=== PATIENT | male | born 1960 ===

== ENCOUNTER 2017-08-11 09:59 | Observation (INO) | payer BC ==
[2017-08-11] MEDS ORDERED: Aspirin TAB* 325 MG PO ONE (11:48)
[2017-08-11 12:02] LABS: ABS Basophils 0.1 10^3/ul (0-0.2); ABS Eosinophils 0.1 10^3/ul (0-0.6); ABS Lymphocytes 2.2 10^3/ul (1.0-4.8); ABS Monocytes 0.4 10^3/ul (0-0.8); ABS Neutrophils 6.6 10^3/ul (1.5-7.7); ABS Nucleated RBC 0 10^3/ul; Eosinophil % 0.7 % (0-6); Hematocrit 48 % (42-52); Hemoglobin 16.4 g/dl (14.0-18.0); Lymphocyte % 23.5 % (25-47); Mean Corpuscular HGB Conc 35 g/dl (31-36); Mean Corpuscular Hemoglobin 32 pg (27-31); Mean Corpuscular Volume 92 fL (80-94); Mean Platelet Volume 8 um3 (7.4-10.4); Nucleated Red Blood Cells % 0.2; Platelet Count 227 10^3/ul (150-450); Red Blood Count 5.19 10^6/ul (4.0-5.4); Red Cell Distribution Width 13 % (10.5-15); White Blood Count 9.5 10^3/ul (3.5-10.8)
--- NOTE | 2017-08-11 12:14 | RAD ---
INDICATION: Chest pain COMPARISON: July 08, 2010 TECHNIQUE: An AP portable view obtained at 1155 hours is submitted. The examination is apical lordotic in positioning FINDINGS: Bones/Soft Tissues: There are no acute bony findings. Cardiomediastinal: The cardiomediastinal silhouette is normal. Lungs: There are no infiltrates. Pleura: There are no pleural effusions. Other: None IMPRESSION: NO ACTIVE DISEASE
[2017-08-11 12:17] LABS: EGFR Non-African American 89.3 (>60)
[2017-08-11] MEDS ORDERED: Dextrose 50% Syringe 50 ML* 25 GM/50 ML SYRINGE IV PUSH PRN (14:24)
[2017-08-11] MEDS ORDERED: NS 0.9% 1000 ML* 1,000 ML IV SCH (14:30)
[2017-08-11] MEDS: Insulin LISPRO* 1 UNITS UNIT SUBCUT SCH ×2 (17:29→22:16)
--- NOTE | 2017-08-11 19:58 | HP ---
CC: Dr. Augustine Garnett * ADMISSION HISTORY AND PHYSICAL: DATE OF ADMISSION: 08/11/17 PRIMARY CARE PROVIDER: Dr. Augustine Garnett. MY ATTENDING WHILE IN THE HOSPITAL: Dr. Murphy Patel * (DICTATED BY SIMRAN BOJORQUEZ) CHIEF COMPLAINT: Chest pain intermittently for 10 days. HISTORY OF PRESENT ILLNESS: Mr. Rice is a 57-year-old male with a past medical history significant for diabetes mellitus, hypertension, hyperlipidemia , non- alcoholic fatty liver disease, who presents with 10 days of tightness in his chest on the left side that appears intermittently without provoking or palliating factors. The patient also had one episode 5 days ago when he was shoveling when he developed severe crushing chest pain over the left side of his chest with associated shortness of breath and feeling of impending doom. This resolved with the cessation of activity, but the patient was perturbed by how little activity it brought on. The patient did not receive medical attention at that time, but continued to have chest tightness intermittently most recently on the morning of 08/11/17. The patient called his primary care provider and came into the hospital. With these episodes, the patient does not have any nausea, vomiting, diuresis, palpitations, or other abnormalities. The patient also had one episode of dizziness when he was attempting to exercise on treadmill after about 5 minutes and this forced him to stop. The patient has no orthopnea, PND, swelling in his legs. The patient has increased urination in the night, but has had increased urination for many years he believes related to his diabetes. The patient also has pain in his shoulder, which he feels similar to the rotator cuff tear that he used to have a severe mainly with abduction and radiates down from his shoulder into his biceps and elbow. Hospitalists service was asked to evaluate for admission to rule out myocardial infarction. PAST MEDICAL HISTORY: 1. Diabetes mellitus type 2. 2. Hypertension. 3. Hyperlipidemia. 4. Non-alcoholic fatty liver disease. 5. Tobacco use disorder. PAST SURGICAL HISTORY: None. MEDICATIONS: 1. Crestor 5 mg p.o. daily. 2. Glipizide 15 mg p.o. daily. 3. Amlodipine 10 mg p.o. daily. 4. Janumet 100/1000, one tab p.o. daily. 5. Losartan/hydrochlorothiazide 100/12.5 one tab p.o. daily. ALLERGIES: No known drug allergies. FAMILY HISTORY: The patient's father, brother, and mother all had heart attacks. The patient's father had his first heart attack in his 30s. The patient's brother had his first heart attack in his 40s. The patient's mother had her heart attack at 83. Both the patient's parents also had CVAs. SOCIAL HISTORY: The patient has a 30 year pack history of smoking, which is ongoing. The patient also chews tobacco. The patient also has a history of intermittent alcohol use, which was more intense when he was younger. The patient denies any illicit drugs. 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 The patient is recently and has 2 children from previous marriage. REVIEW OF SYSTEMS: A 14-point review of systems was conducted and is negative except as stated in the HPI. PHYSICAL EXAMINATION GENERAL: The patient is a 57-year-old male, who appears stated age, and is sitting comfortably in the bed, in no acute distress. VITAL SIGNS: Temperature 98.9, pulse rate 96, respiratory rate 18, oxygen saturation 98% on room air, blood pressure 149/102. HEENT: Head: Normocephalic, atraumatic. Sclerae anicteric. No conjunctival injection. Nasal mucosa moist. Oral mucosa moist. No oropharyngeal erythema, exudates or discharge. NECK: Supple, nontender. No lymphadenopathy. No carotids bruits auscultated. RESPIRATORY: Clear to auscultation bilaterally. No wheezes, rales, or rhonchi. Good air exchange bilaterally. CARDIAC: Regular rate and rhythm. No clicks, murmurs, gallops, or rubs. Pulses 2+ in bilateral dorsalis pedis, posterior tibialis, and radial areas. ABDOMEN: Soft, nontender, nondistended. Bowel sounds present, normoactive, in all 4 quadrants. No hepatosplenomegaly. No abdominal bruits auscultated. GENITOURINARY: No suprapubic tenderness or CVA tenderness. MUSCULOSKELETAL: The patient has limited range of motion in the right upper extremity. With abduction, the patient can abduct only to 90 degrees before being halted by pain. The patient denies any popping or cracking. The patient denies any tenderness in the biceps or in the elbow. No other deformity or abnormality. NEURO: Cranial nerves II through XII intact. No focal deficits. He is alert and oriented x3. PSYCHIATRIC: The patient is pleasant and cooperative. SKIN: Clean, dry, intact. No rash. LABORATORY DATA: White blood cell count is 9.5, red blood cell count 5.9, hemoglobin 15.4, hematocrit 48, MCV 92, MCH 32, MCHC 35, RDW 13, platelet count 227. Sodium 135, potassium 4.0, chloride 100, carbon dioxide 25, anion gap 10, BUN 13, creatinine 0.88, glucose 322, lactic acid 2.2, calcium 9.7, total bilirubin 0.6. AST 17, ALT 20. Alkaline phosphatase 155. Troponin-I 0.00. Total protein 6.7. Albumin 4.2, globulin 2.5. STUDIES DONE WHILE IN THE HOSPITAL: Chest x-ray, read as no active disease. Electrocardiogram shows normal sinus rhythm, early repolarization in V2, V3, and V4, no ST segment abnormalities, left axis deviation, left atrial enlargement, QTC of 422. No other abnormalities. ASSESSMENT AND PLAN: Impression: The patient is a 57-year-old male with past medical history significant for hypertension, hyperlipidemia, diabetes mellitus and non-alcoholic fatty liver disease, who presents with 10 days of chest pain concerning for angina with associated shortness of breath and feelings of impending doom. The patient has negative troponins, negative EKG and will be admitted to the hospital for a cardiac stress test in the morning. 1. Chest pain. The patient's chest pain is severe associated with shortness of breath, feelings of impending doom and is exacerbated by activity. The patient has risk factors including diabetes, hypertension, hyperlipidemia, positive family history, smoking disorder, and has had multiple episodes in 24 hour. This equates to a DEANDRE score of 2, which equates to an 8% risk of 14-day all cause mortality. No recurrent myocardial ischemia or severe recurrent ischemia requiring urgent revascularization. This was explained to the patient and the patient is amenable to being admitted to the hospital for a stress test as opposed to an outpatient stress test. We will repeat troponin x2, the first one was 0.00. 2. Diabetes mellitus type 2. The patient's glucose while admission to the emergency department was over 300. We will hold the patient's oral medications while in the hospital and start him on lispro sliding scale. We will resume medications at discharge. We will order hemoglobin A1c. 3. Hypertension. The patient has had one elevated blood pressure while in the hospital, while in the emergency department. We will continue the patient's blood pressure medications and consider adding a beta-carlos if indicated at discharge. 4. Hyperlipidemia. We will repeat the patient's lipid panel and continue patient's Crestor while in the hospital. 5. DVT prophylaxis. The patient is low risk and will be up ad-mary. 6. FEN. The patient had an elevated lactic acid. We will give the patient's fluids at 75 mL/hr. The patient does not appear dehydrated on exam. We will repeat lactic acid. The patient will have a heart-healthy diet and be n.p.o. after midnight. 7. Code status. The patient will be a full code. His surrogate decision maker is his , Latha Rice. 8. Disposition. The patient will be admitted to observation for his stress test. TIME SPENT: Approximately 60 minutes was spent on this admission, 30 of which was spent [id number] with the patient obtaining history and physical and discussing treatment plan. SIMRAN BOJORQUEZ [id number]/[facility] #: [id number] LUIS
[2017-08-12 05:57] LABS: ABS Basophils 0.1 10^3/ul (0-0.2); ABS Eosinophils 0.2 10^3/ul (0-0.6); ABS Lymphocytes 2.6 10^3/ul (1.0-4.8); ABS Monocytes 0.5 10^3/ul (0-0.8); ABS Nucleated RBC 0 10^3/ul; Eosinophil % 1.6 % (0-6); Hematocrit 45 % (42-52); Hemoglobin 15.5 g/dl (14.0-18.0); Lymphocyte % 28.2 % (25-47); Mean Corpuscular HGB Conc 35 g/dl (31-36); Mean Corpuscular Hemoglobin 32 pg (27-31); Mean Corpuscular Volume 91 fL (80-94); Mean Platelet Volume 8 um3 (7.4-10.4); Nucleated Red Blood Cells % 0; Platelet Count 203 10^3/ul (150-450); Red Blood Count 4.88 10^6/ul (4.0-5.4); Red Cell Distribution Width 13 % (10.5-15); White Blood Count 9.4 10^3/ul (3.5-10.8)
[2017-08-12 06:12] LABS: EGFR Non-African American 89.3 (>60)
[2017-08-12] MEDS: Insulin LISPRO* 1 UNITS UNIT SUBCUT SCH ×2 (07:49→13:06)
[2017-08-12] MEDS ORDERED: Aspirin EC Low Dose* 81 MG TAB.EC PO SCH (09:00)
[2017-08-12] MEDS ORDERED: Atorvastatin* 10 MG TAB PO SCH (09:00)
[2017-08-12] MEDS ORDERED: Hydrochlorothiazide TAB* 25 MG PO SCH (09:00)
[2017-08-12] MEDS ORDERED: Losartan TAB* 25 MG PO SCH (09:00)
[2017-08-12] MEDS ORDERED: amLODIPine TAB* 5 MG PO SCH (09:00)
[2017-08-12] MEDS ORDERED: Regadenoson* 0.4 MG/5 ML SYRINGE ONE (11:09)
--- NOTE | 2017-08-12 12:59 | RAD ---
Edited for charges. INDICATION: Unstable angina. Chest pain, shortness of breath, diabetes, hypertension, elevated cholesterol, tobacco use, family history of heart disease. COMPARISON: No relevant prior exams available on the [facility] [place] PACS for comparison. TECHNIQUE: 10.320 mCi of Tc-99m Myoview were administered IV. SPECT images of the heart were obtained. Later on the same day. Under the direction of Dr. Rodriguez, the patient was given an IV injection of a pharmacologic stress agent. Subsequently, the patient was given an IV injection of 25.300 mCi Tc-99m Myoview. SPECT images of the heart were obtained and a gated wall motion study was performed. FINDINGS: Gated wall motion images were obtained at stress and demonstrate wall motion to be within normal limits. The calculated left ventricular ejection fraction is 57 % at stress. Estimated LEFT ventricular end diastolic volume is 98 mL. TID 1.06. Diaphragmatic attenuation noted on the nonattenuation corrected series. Artifact from inferior gut activity. Based on review of the attenuation corrected and non corrected images the distribution of radiopharmaceutical within the myocardium on the stress and rest images is within normal limits. No fixed or reversible regions of hypoperfusion evident. IMPRESSION: 1. No evidence for stress induced myocardial ischemia or presence of an infarct. 2. Normal left ventricular wall motion and ejection fraction. ASSESSMENT: Low risk based on nuclear portion. Based on imaging criteria from ACC/AHA 2002 Guideline Update for the Management of Patients With Chronic Stable Angina Table 23. Noninvasive Risk Stratification. MTDD
[2017-08-12 14:43] VITALS: BP 146/83
--- NOTE | 2017-08-13 11:23 | DS ---
CC: Dr. Augustine Garnett * DISCHARGE SUMMARY: DATE OF ADMISSION: 08/11/17 DATE OF DISCHARGE: 08/12/17 PRIMARY CARE PROVIDER: Dr. Augustine Garnett. MY ATTENDING WHILE IN THE HOSPITAL: Dr. Murphy Patel.* (DICTATED BY SIMRAN BOJORQUEZ) PRIMARY DISCHARGE DIAGNOSIS: Chest pain. SECONDARY DISCHARGE DIAGNOSES: 1. Diabetes mellitus, type 2, non-insulin dependent. 2. Hyperlipidemia. 3. Hypertension. 4. Non-alcoholic fatty liver disease. 5. Tobacco abuse disorder. STUDIES DONE WHILE IN THE HOSPITAL: Electrocardiogram from 08/01/17 shows normal sinus rhythm, early repolarization in V2, V3, and V4, no other ST segment abnormalities, left axis deviation, no signs of hypertrophy or enlargement, QTc of 422, no other abnormalities. Chest x-ray from 08/11/17 read as no active disease. Nuclear medicine scan from 08/12/17 shows no evidence for stress-induced myocardial ischemia or presence of infarction, normal ventricular wall motion and ejection fraction. MEDICATIONS: 1. Crestor 5 mg p.o. daily. 2. Glipizide 15 mg p.o. daily. 3. Amlodipine 10 mg p.o. daily. 4. Janumet 100/1000 one tab p.o. daily. 5. Losartan/hydrochlorothiazide 100/12.5 one tab p.o. daily. 6. Viagra 100 mg p.o. daily as needed. 7. Aspirin 81 mg p.o. daily. New medications at discharge: Aspirin. Medications discontinued at discharge: None. HOSPITAL COURSE: This is a brief summary of the patient's presentation. For more details, please see the history and physical from SIMRAN Bojorquez, on . In brief, the patient is a 57-year-old male with past medical history significant for the above, who presents with chest pain intermittently for 10 days, worse while he was shoveling and he states it was associated with shortness of breath and impending sense of doom, radiating down his arm; however , this is complicated by the fact the patient has, what he believes to be, rotator cuff tear and pain in his biceps and elbow from musculoskeletal causes. The patient had no symptoms associated with his other episodes of chest pain, which he describes as tightness, mild, and most recently on the morning of 08/11, the patient had a DEANDRE score of 2, was admitted to the hospital for a stress test to rule out myocardial infarction. The patient had a lipid panel drawn, which showed an LDL cholesterol of 60 and HDL cholesterol of 37.8, triglycerides of 294, and cholesterol of 157. The patient also had a hemoglobin A1c, which was 9.1. The patient had no events overnight. The patient's telemetry was unremarkable. The patient went for stress test in the morning and had some recurrence of chest tightness with exertion, but had no silent ischemia on his nuclear medicine myocardial imaging. The patient is amenable to be discharged on aspirin for primary prevention of myocardial infarction. PHYSICAL EXAMINATION AT DISCHARGE: General: The patient is a 57-year-old male , who appears stated age, sitting comfortably in bed, in no acute distress. Vital Signs: At the time of discharge: Temperature 97.9, pulse rate 66, respiratory rate , oxygen saturation 98% on room air, blood pressure 146/ 83. HEENT: Head normocephalic, atraumatic. Sclerae anicteric. No conjunctival injection. Nasal mucosa moist. Oral mucosa moist. Pharynx: Nonerythematous. No discharge or postnasal drip. Neck: Supple, nontender. No lymphadenopathy. No carotid bruit auscultated. Cardiac: Regular rate and rhythm. No clicks, murmurs, gallops, or rubs. Pulses 2+ in bilateral dorsalis pedis, posterior tibialis, and radial areas. Respiratory: Clear to auscultation bilaterally. No wheezes, rales, or rhonchi. Abdomen: Soft, nontender, nondistended. Bowel sounds present. Normoactive in all 4 quadrants. No abdominal bruits auscultated. No hepatosplenomegaly. Genitourinary: No suprapubic tenderness or CVA tenderness. Skin: Clean, dry, and intact. No rash. Neuro: Cranial nerves II through XII intact. No focal deficits. Alert and oriented x3. Psychiatric: Pleasant and cooperative. LABORATORY DATA ON DAY OF DISCHARGE: White blood cell count 9.4, hemoglobin 15.5, hematocrit 45, platelet count 203. Sodium 137, potassium 3.9, chloride 106, carbon dioxide 26, anion gap 5, BUN 17, creatinine 0.88, glucose 191, magnesium 1.8. Other pertinent laboratory values from the admission: Troponin I 0.0 x2, 0.1 x1. Lactic acid 2.2 on admission. Glucose 323 on admission. DISCHARGE PLAN: The patient will be discharged to home. The patient will be started on aspirin for primary prevention of myocardial infarction. The patient 's lipid profile is good and is not yet on statin therapy. The patient's diabetic control is poor. The patient states he is recently started on glipizide. The patient should discuss with his primary care provider changing his oral medication regimen or possibly initiating insulin therapy for his diabetes mellitus and the patient is at very risk for myocardial infarction and to return to hospital for any recurrence of chest pain while he was shoveling. The patient should follow up with his primary care provider and possibly with an orthopedist for his left shoulder pain. The patient should engage in activity as tolerated with a goal of weight loss and cardiovascular conditioning. The patient should have a consistent carbohydrate, heart-healthy diet, and avoid caffeine. TIME SPENT: Approximately 60 minutes was spent on this discharge, 30 of which was spent [id number] with the patient obtaining history and physical and discussing treatment plan. SIMRAN BOJORQUEZ [id number]/[facility] #: [id number] LUIS
--- NOTE | 2017-08-14 16:06 | ED ---
Miky Dang Gabriel scribed for Erik Pastor MD on 08/11/17 at 1139 . HPI Chest Pain - HPI Summary HPI Summary: This patient is a 57 year old M presenting to [facility] after being sent from his PCP for chest pressure that began a week ago. The patient rates the pain 2/10 in severity located on the left upper portion of his sternum. Symptoms aggravated by exertion. Patient reports SOB. Patient denies diaphoresis and pleuritic pain. Patient believes he tore his left rotator cuff and is having LUE pain that is exacerbated by movement and by sleeping on it. Patient states he has DM and his sugar has been high (190). Father had multiple MIs and brother had one at 45. Patient has a history of HTN and HLD. - History of Current Complaint Chief Complaint: EDChestPainROMI Time Seen by Provider: 08/11/17 11:33 Hx Obtained From: Patient Onset/Duration: Started Weeks Ago - 1, Still Present Timing: Constant Initial Severity: Mild Current Severity: Mild Pain Intensity: 2 Pain Scale Used: 0-10 Numeric Chest Pain Location: Diffuse, Mid Sternal Chest Pain Radiates: No Character: Pressure/Squeezing Aggravating Factor(s): Exertion Associated Signs and Symptoms: Positive: Negative - diaphoresis and pleuritic pain, Chest Pain, Shortness of Breath - Allergy/Home Medications Allergies/Adverse Reactions: Allergies Allergy/AdvReac Type Severity Reaction Status Date / Time No Known Allergies Allergy Verified 03/13/16 11:37 Home Medications: Home Medications Losartan Potassium & Hydrochlo [Losartan Potassium/Hydroc 100-12.5 mg] 1 tab PO DAILY 08/11/17 [History Confirmed 08/11/17] Rosuvastatin (NF) [Crestor (NF)] 5 mg PO DAILY 08/11/17 [History Confirmed 08/11] Sitaglip/RdukpmrHV761/1000(NR) [Janumet XR 100/1000 (NF)] 1 tab PO DAILY [History Confirmed 08/11/17] amLODIPine TAB* [Norvasc 5 mg TAB*] 10 mg PO DAILY 08/11/17 [History Confirmed 08/11/17] glipiZIDE TAB.XL* [Glucotrol XL*] 15 mg PO DAILY 08/11/17 [History Confirmed ] PMH/Surg Hx/FS Hx/Imm Hx Endocrine/Hematology History: Reports: Hx Diabetes Cardiovascular History: Reports: Hx Hypercholesterolemia, Hx Hypertension Denies: Hx Angioplasty, Hx Atrial Fibrillation, Hx Auto Implanted Cardiovert Defib, Hx Cardiac Arrest, Hx Congenital Heart Disease, Hx Congestive Heart Failure, Hx Deep Vein Thrombosis GI History: Denies: Hx Cirrhosis, Hx Crohn's Disease History: Denies: Hx Acute Renal Failure Musculoskeletal History: Denies: Hx Arthritis, Hx Rheumatoid Arthritis Infectious Disease History: No Infectious Disease History: Denies: Traveled Outside the [place] in Last 30 Days - Family History Known Family History: Positive: Cardiac Disease - father had multiple MA's , Hypertension, Diabetes Negative: Renal Disease, Respiratory Disease, Seizure Disorder, Blood Disorder - Social History Occupation: Employed Full-time Alcohol Use: None Hx Substance Use: No Substance Use Type: Reports: None Smoking Status (MU): Former Smoker - recently quit as of 08/11/17 Review of Systems Negative: Fever, Chills Negative: Erythema Negative: Sore Throat Positive: Chest Pain Positive: Shortness Of Breath. Negative: Cough Negative: Abdominal Pain, Vomiting, Nausea Negative: dysuria, hematuria Positive: Other - LUE pain . Negative: Myalgia, Edema Negative: Rash Neurological: Negative - dizziness All Other Systems Reviewed And Are Negative: Yes Physical Exam - Summary Physical Exam Summary: Constitutional: Well-developed, Well-nourished, Alert. (-) Distressed Skin: Warm, Dry HENT: Normocephalic; Atraumatic Eyes: Conjunctiva normal Neck: Musculoskeletal ROM normal neck. (-) JVD, (-) Stridor, (-) Tracheal deviation Cardio: Rhythm regular, rate normal, Heart sounds normal; Intact distal pulses; The pedal pulses are 2+ and symmetric. Radial pulses are 2+ and symmetric. (-) Murmur Pulmonary/Chest wall: Effort normal. (-) Respiratory distress, (-) Wheezes, (-) Rales Abd: Soft, (-) Tenderness, (-) Distension, (-) Guarding, (-) Rebound Musculoskeletal: (-) Edema Lymph: (-) Cervical adenopathy Neuro: Alert, Oriented x3 Psych: Mood and affect Normal Triage Information Reviewed: Yes Vital Signs On Initial Exam: Initial Vitals Temp Pulse Resp BP Pulse Ox 98.9 F 96 18 149/102 98 01/16/18 10:14 08/11/17 10:14 08/11/17 10:14 08/11/17 10:14 08/11/17 10:14 Vital Signs Reviewed: Yes Diagnostics - Vital Signs Vital Signs Temp Pulse Resp BP Pulse Ox 08/11/17 10:14 98.9 F 96 18 149/102 98 - Laboratory Result Diagrams: 08/11/17 11:48 08/11/17 11:48 Lab Statement: Any lab studies that have been ordered have been reviewed, and results considered in the medical decision making process. - Radiology CXR Radiology Interpretation Completed By: Radiologist - No active disease ED physician has reviewed this radiology report. - EKG 10:20 Cardiac Rate: NL EKG Rhythm: Sinus Rhythm - at 82 BPM EKG Interpretation: No STEMI Chest Pain Course/Dx - Course Assessment/Plan: This patient is a 57 year old M presenting to [facility] after being sent from his PCP for chest pressure that began a week ago. The patient rates the pain 2/10 in severity located on the left upper portion of his sternum. Symptoms aggravated by exertion. Patient reports SOB. Patient denies diaphoresis and pleuritic pain. Patient believes he tore his left rotator cuff and is having LUE pain that is exacerbated by movement and by sleeping on it. Patient states he has DM and his sugar has been high (190). Father had multiple MIs and brother had one at 45. CP unspecified angina. An EKG reveals NSR. CXR reveals, per radiologist, No active disease. ED physician has reviewed this radiology report. Test results with no significant abnormalities except for a lactic acid of 2.2. In the ED course the patient was given ASA, Lipitor, Norvasc, Humalog, and IV fluids. We discussed patient care with Dr. Patel and he agreed to admit the patient. Patient will be admitted. The patient is agreeable with this plan. - Diagnoses Provider Diagnoses: Angina of effort, Chest pain, unspecified - Provider Notifications Discussed Care Of Patient With: Murphy Patel Time Discussed With Above Provider: 12:09 Instructed by Provider To: Admit As Inpatient Discharge - Discharge Plan Condition: Fair Disposition: ADMITTED TO [facility] Referrals: Augustine Garnett MD [Primary Care Provider] - The documentation as recorded by the Miky prajapati Gabriel accurately reflects the service I personally performed and the decisions made by me, Erik Pastor MD.
== END 2017-08-12 14:15 | disposition home or self-care (01) ==
LOC: ED 09:59 → MEDTELE 16:41
PROVIDERS: ADMIT Internal Medicine; ATTEND Internal Medicine
DX: R07.9 Chest pain, unspecified (principal); E11.9 Type 2 diabetes mellitus without complications; I10 Essential (primary) hypertension; E78.5 Hyperlipidemia, unspecified; F17.210 Nicotine dependence, cigarettes, uncomplicated; K76.0 Fatty (change of) liver, not elsewhere classified; Z79.899 Other long term (current) drug therapy; Z79.84 Long term (current) use of oral hypoglycemic drugs
CPT/HCPCS: 36415; 71045; 78452; 80048; 80053; 80061; 83036; 83605; 83735; 84484; 85025; 93005; 93017; 96360; 96361; 99283; A9270-GY; A9502; G0378; J2785

== ENCOUNTER 2017-08-13 18:59 | Inpatient (IN) | payer BC ==
[2017-08-13] MEDS ORDERED: NS 0.9% 1000 ML* 1,000 ML IV SCH ×2 (19:15→21:30)
--- NOTE | 2017-08-13 19:47 | RAD ---
Indication: Chest pain. Single frontal view of the chest performed at 1924 hours was reviewed. Comparison is made with previous exam dated August 11, 2017. No mediastinal shift is noted. Heart is of normal size and configuration. Lung chance appear clear. IMPRESSION: NO ACTIVE CARDIOPULMONARY DISEASE IS NOTED.
[2017-08-13 19:48] LABS: ABS Basophils 0.1 10^3/ul (0-0.2); ABS Eosinophils 0.1 10^3/ul (0-0.6); ABS Lymphocytes 2.4 10^3/ul (1.0-4.8); ABS Monocytes 0.5 10^3/ul (0-0.8); ABS Neutrophils 5.5 10^3/ul (1.5-7.7); ABS Nucleated RBC 0 10^3/ul; Eosinophil % 1.4 % (0-6); Hematocrit 46 % (42-52); Hemoglobin 16.1 g/dl (14.0-18.0); Lymphocyte % 28.3 % (25-47); Mean Corpuscular HGB Conc 35 g/dl (31-36); Mean Corpuscular Hemoglobin 32 pg (27-31); Mean Corpuscular Volume 91 fL (80-94); Mean Platelet Volume 8 um3 (7.4-10.4); Nucleated Red Blood Cells % 0.1; Platelet Count 225 10^3/ul (150-450); Red Blood Count 5.01 10^6/ul (4.0-5.4); Red Cell Distribution Width 13 % (10.5-15); White Blood Count 8.6 10^3/ul (3.5-10.8)
[2017-08-13 20:04] LABS: EGFR Non-African American 88.1 (>60)
[2017-08-13 20:06] LABS: INR 0.86 (0.77-1.02)
[2017-08-13] MEDS ORDERED: Heparin DRIP 25,000 UNITS(*) 25,000 UNITS/500 ML BAG IV SCH (20:30)
[2017-08-13] MEDS ORDERED: Nitroglycerin TAB 0.4 MG* 0.4 MG TAB SL ONE (20:43)
[2017-08-13] MEDS ORDERED: Heparin DRIP 25,000 UNITS(*) 25,000 UNITS/500 ML BAG IVPB SCH ×2 (20:45→21:30)
[2017-08-13] MEDS ORDERED: Metoprolol Tartrate IV* 1 MG/ML 5 ML VIAL IV ONE (20:59)
[2017-08-13] MEDS ORDERED: Clopidogrel TAB* 300 MG PO ONE (20:59)
[2017-08-13] MEDS ORDERED: Heparin VIAL(*) 5000 UNITS/ML VIAL (FIVE THOUSAND) IV SCH ×3 (21:00→22:00)
[2017-08-13] MEDS ORDERED: Acetaminophen TAB* 325 MG PO PRN (21:27)
[2017-08-13] MEDS ORDERED: Dextrose 50% Syringe 50 ML* 25 GM/50 ML SYRINGE IV PUSH PRN (21:27)
[2017-08-13] MEDS ORDERED: Potassium Chlor TAB* 20 MEQ TAB.ER PO ONE (21:27)
[2017-08-13] MEDS ORDERED: Atorvastatin* 80 MG TAB PO ONE (21:27)
[2017-08-13] MEDS ORDERED: Metoprolol Tartrate TAB* 25 MG PO SCH (22:00)
--- NOTE | 2017-08-13 22:34 | ED ---
Yois Dang Thomas, scribed for Krishna Perez MD on 08/13/17 at 1916 . HPI Chest Pain - HPI Summary HPI Summary: The patient is a 57 year old man who complains of a chest pain in her central chest. The pain began about 10-12 days ago. It has been intermittent, and he rates the pain 1/10. The pain is described as a nagging pain like a tooth ache. The patient was recently admitted for chest pain and he has a recent negative stress test. He denies nausea and shortness of breath. - History of Current Complaint Chief Complaint: EDChestPainROMI Time Seen by Provider: 08/13/17 19:07 Hx Obtained From: Patient Onset/Duration: Started Days Ago - 10-12 days ago., Still Present Timing: Intermittent Initial Severity: Mild Current Severity: Mild Pain Intensity: 4 Pain Scale Used: 0-10 Numeric Chest Pain Location: Discrete at: - central Chest Pain Radiates: No Character: Dull/Aching Aggravating Factor(s): Nothing Associated Signs and Symptoms: Positive: Chest Pain. Negative: Shortness of Breath, Nausea - Allergy/Home Medications Allergies/Adverse Reactions: Allergies Allergy/AdvReac Type Severity Reaction Status Date / Time No Known Allergies Allergy Verified 03/13/16 11:37 PMH/Surg Hx/FS Hx/Imm Hx Previously Healthy: No Endocrine/Hematology History: Reports: Hx Diabetes Cardiovascular History: Reports: Hx Angina, Hx Hypercholesterolemia, Hx Hypertension Respiratory History: Denies: Hx Asthma Sensory History: Reports: Hx Contacts or Glasses Denies: Hx Hearing Aid Opthamlomology History: Reports: Hx Contacts or Glasses - Surgical History Surgery Procedure, Year, and Place: Right rotator cuff surgery Hx Anesthesia Reactions: No Infectious Disease History: No Infectious Disease History: Denies: Traveled Outside the [place] in Last 30 Days - Family History Known Family History: Positive: Cardiac Disease - Social History Alcohol Use: Occasionally Substance Use Type: Reports: None Smoking Status (MU): Former Smoker Have You Smoked in the Last Year: Yes Review of Systems Negative: Fever Positive: Chest Pain Negative: Shortness Of Breath Negative: Nausea All Other Systems Reviewed And Are Negative: Yes Physical Exam - Summary Physical Exam Summary: General: well-appearing, no pain distress Skin: warm, color reflects adequate perfusion, dry Head: normal Eyes: EOMI, SAI ENT: normal Neck: supple, nontender Respiratory: CTA, breath sounds present Cardiovascular: RRR Abdomen: soft, nontender Bowel: present Musculoskeletal: normal, strength/ROM intact Neurological: normal, sensory/motor intact, A&O x3 Psychological: affect/mood appropriate Triage Information Reviewed: Yes Vital Signs On Initial Exam: Initial Vitals Temp Pulse Resp BP Pulse Ox 100 F 75 16 172/89 97 08/13/17 19:00 08/13/17 19:00 08/13/17 19:00 08/13/17 19:00 08/13/17 19:00 Vital Signs Reviewed: Yes Diagnostics - Vital Signs Vital Signs Temp Pulse Resp BP Pulse Ox 08/13/17 19:00 100 F 75 16 172/89 97 - Laboratory Lab Results: Lab Results 08/13/17 08/13/17 08/13/17 Range/Units 19:30 19:30 19:30 WBC (3.5-10.8) 10^3/ul RBC (4.0-5.4) 10^6/ul Hgb (14.0-18.0) g/dl Hct (42-52) % MCV (80-94) fL MCH (27-31) pg MCHC (31-36) g/dl RDW (10.5-15) % Plt Count (150-450) 10^3/ul MPV (7.4-10.4) um3 Neut % (Auto) (38-83) % Lymph % (Auto) (25-47) % Traill % (Auto) (1-9) % Eos % (Auto) (0-6) % Baso % (Auto) (0-2) % Absolute Neuts (auto) (1.5-7.7) 10^3/ul Absolute Lymphs (auto) (1.0-4.8) 10^3/ul Absolute Monos (auto) (0-0.8) 10^3/ul Absolute Eos (auto) (0-0.6) 10^3/ul Absolute Basos (auto) (0-0.2) 10^3/ul Absolute Nucleated RBC 10^3/ul Nucleated RBC % ESR INR (Anticoag Therapy) 0.86 (0.77-1.02) APTT 30.9 (26.0-36.3) seconds D-Dimer, Quantitative < 200 (Less Than 230) ng/mL Sodium 137 (133-145) mmol/L Potassium 3.4 L (3.5-5.0) mmol/L Chloride 103 (101-111) mmol/L Carbon Dioxide 26 (22-32) mmol/L Anion Gap 8 (2-11) mmol/L BUN 17 (6-24) mg/dL Creatinine 0.89 (0.67-1.17) mg/dL Est GFR ( Amer) 113.3 (>60) Est GFR (Non-Af Amer) 88.1 (>60) BUN/Creatinine Ratio 19.1 (8-20) Glucose 161 H (70-100) mg/dL Lactic Acid (0.5-2.0) mmol/L Calcium 9.6 (8.6-10.3) mg/dL Magnesium 2.0 (1.9-2.7) mg/dL Total Bilirubin 0.60 (0.2-1.0) mg/dL AST 17 (13-39) U/L ALT 17 (7-52) U/L Alkaline Phosphatase 127 H (34-104) U/L Total Creatine Kinase 127 (10-223) U/L CK-MB (CK-2) 9.0 H (0.6-6.3) ng/mL Troponin I 0.53 H* (<0.04) ng/mL C-Reactive Protein 3.52 (< 5.00) mg/L B-Natriuretic Peptide 27 ( - 100) pg/mL Total Protein 7.1 (6.4-8.9) g/dL Albumin 4.3 (3.2-5.2) g/dL Globulin 2.8 (2-4) g/dL Albumin/Globulin Ratio 1.5 (1-3) TSH 7.20 H (0.34-5.60) mcIU/mL 08/13/17 08/13/17 Range/Units 19:30 19:30 WBC 8.6 (3.5-10.8) 10^3/ul RBC 5.01 (4.0-5.4) 10^6/ul Hgb 16.1 (14.0-18.0) g/dl Hct 46 (42-52) % MCV 91 (80-94) fL MCH 32 H (27-31) pg MCHC 35 (31-36) g/dl RDW 13 (10.5-15) % Plt Count 225 (150-450) 10^3/ul MPV 8 (7.4-10.4) um3 Neut % (Auto) 64.0 (38-83) % Lymph % (Auto) 28.3 (25-47) % Traill % (Auto) 5.6 (1-9) % Eos % (Auto) 1.4 (0-6) % Baso % (Auto) 0.7 (0-2) % Absolute Neuts (auto) 5.5 (1.5-7.7) 10^3/ul Absolute Lymphs (auto) 2.4 (1.0-4.8) 10^3/ul Absolute Monos (auto) 0.5 (0-0.8) 10^3/ul Absolute Eos (auto) 0.1 (0-0.6) 10^3/ul Absolute Basos (auto) 0.1 (0-0.2) 10^3/ul Absolute Nucleated RBC 0 10^3/ul Nucleated RBC % 0.1 ESR Pending INR (Anticoag Therapy) (0.77-1.02) APTT (26.0-36.3) seconds D-Dimer, Quantitative (Less Than 230) ng/mL Sodium (133-145) mmol/L Potassium (3.5-5.0) mmol/L Chloride (101-111) mmol/L Carbon Dioxide (22-32) mmol/L Anion Gap (2-11) mmol/L BUN (6-24) mg/dL Creatinine (0.67-1.17) mg/dL Est GFR ( Amer) (>60) Est GFR (Non-Af Amer) (>60) BUN/Creatinine Ratio (8-20) Glucose (70-100) mg/dL Lactic Acid 1.1 (0.5-2.0) mmol/L Calcium (8.6-10.3) mg/dL Magnesium (1.9-2.7) mg/dL Total Bilirubin (0.2-1.0) mg/dL AST (13-39) U/L ALT (7-52) U/L Alkaline Phosphatase (34-104) U/L Total Creatine Kinase (10-223) U/L CK-MB (CK-2) (0.6-6.3) ng/mL Troponin I (<0.04) ng/mL C-Reactive Protein (< 5.00) mg/L B-Natriuretic Peptide ( - 100) pg/mL Total Protein (6.4-8.9) g/dL Albumin (3.2-5.2) g/dL Globulin (2-4) g/dL Albumin/Globulin Ratio (1-3) TSH (0.34-5.60) mcIU/mL Result Diagrams: 08/13/17 19:30 08/13/17 19:30 Lab Statement: Any lab studies that have been ordered have been reviewed, and results considered in the medical decision making process. - Radiology CXR Xray Interpretation: No Acute Changes - NO ACTIVE CARDIOPULMONARY DISEASE IS NOTED. Dr. Perez has reviewed this report. Radiology Interpretation Completed By: Radiologist - EKG 19:06 Cardiac Rate: NL EKG Rhythm: Sinus Rhythm - [address] Segment: Normal Ectopy: None Chest Pain Course/Dx - Course Course Of Treatment: Medications reviewed. BP noted and advised follow up with PMD. DISCUSSED WITH DR BLOCK, CARDIOLOGY, AND HOSPITALIST. INITIALLY, THE PATIENT REFUSED NITRO FOR THE 08/05 PAIN. HE AGREED TO FURTHER PAIN TREATMENT AFTER THE ELEVATED TROPONIN WAS DISCUSSED. ADMIT HOSPITALIST. - Diagnoses Provider Diagnoses: Uncontrolled hypertension, Myocardial infarct, Hypothyroidism - Provider Notifications Discussed Care Of Patient With: Gonzalo Katz Time Discussed With Above Provider: 20:40 Instructed by Provider To: Other - I discussed patient care with Dr. Katz , hospitalist. - Critical Care Time Critical Care Time: 30-74 min Discharge - Discharge Plan Condition: Stable Disposition: ADMITTED TO [facility] documentation as recorded by the Yosi prajapati Thomas accurately reflects the service I personally performed and the decisions made by me, Krishna Perez MD.
--- NOTE | 2017-08-13 23:48 | HP ---
CC: Dr. Garnett; Dr. Chavez * HISTORY AND PHYSICAL: DATE OF ADMISSION: 08/13/17 PRIMARY CARE PROVIDER: Dr. Garnett. ATTENDING PHYSICIAN WHILE IN THE HOSPITAL: Kirby Napier MD * (report dictated by Erlin Parisi NP) CHIEF COMPLAINT: Chest pain. HISTORY OF PRESENT ILLNESS: Mr. Rice is a 57-year-old male patient, who actually was recently just here on to , he was discharged. Shortly after being discharged, he noticed yesterday he had an episode of severe crushing chest pain, he said that was about a 6/10 pain, lasted about 2 minutes , he thought it might have been a reflux. He continued to have some intermittent discomfort, he states it was non-exertional, he had no associated symptoms of shortness of breath or nausea or vomiting. He had no pain going up into his neck or down his left arm. He called his primary today. He was scheduled for a followup already and told him what had happened yesterday about this crushing chest pain. His primary got him into the office and checked his troponins and EKGs. Troponin came back at 0.2. There was concern immediately and he was sent to the hospital. He was just here with a negative stress test. The patient came into the emergency room. He states he is not having any more discomfort like he did yesterday. The patient denied having any recent fevers or chills or cough, said he has been dealing with intermittent chest discomfort for the last week and a half, but yesterday it was much worse than what it had been previously. He came in, was evaluated, his troponin had gone up to 0.5. His EKG remained stable. He is having no discomfort now, but we were asked to evaluate for admission. PAST MEDICAL HISTORY: Significant for; 1. Diabetes. 2. Hypertension. 3. Hyperlipidemia. 4. DAWN. 5. Tobacco abuse. PAST SURGICAL HISTORY: He has had rotator cuff repair. MEDICATIONS: The home meds according to the discharge summary dictated yesterday include: 1. Crestor 5 mg daily. 2. Glipizide 15 mg daily. 3. Amlodipine 10 mg daily. 4. Janumet 1 tablet p.o. daily. 5. Losartan/hydrochlorothiazide 1 tablet daily. 6. Viagra 100 mg daily as needed. 7. Aspirin 81 mg daily. ALLERGIES TO MEDICATIONS: Include no known drug allergies. FAMILY HISTORY: His father had an VT in his 30s and also had a CVA. He has had brothers with VT's, multiple family members on his father's side with VT's at early age. Mother had a history of an VT at 83. SOCIAL HISTORY: He is a pack a day smoker, he quit July 27. He does chew tobacco. He rarely drinks alcohol. Surrogate decision maker is his . REVIEW OF SYSTEMS: There is a documented fever here. Denied having any significant weight change. There was no double vision. No ear discharge. Denied having any rhinorrhea. No sore throat. No thyroid enlargement. Denies any chest discomfort now, there was some per my HPI. There was no abdominal pain, no nausea, no vomiting. No dysuria, no frequency. There was no seizure, no loss of consciousness. No pruritus. No skin ulcerations. Review of 14 systems completed, all others negative. PHYSICAL EXAMINATION GENERAL: At this time, Mr. Strong is a 57-year-old male patient. He is sitting in the ED stretcher. He does not appear to be in any acute distress. VITAL SIGNS: Blood pressure 122/91, pulse 66, respirations 15, his O2 sat was 97%. Temperature was 100. HEENT: Head: Atraumatic. Eyes: EOMs are intact. Sclerae are anicteric and not pale. NECK: Supple. Throat: Oral mucosa appears to be moist. No oropharyngeal erythema. LUNGS: Clear to auscultation bilaterally. No wheezes, rales, or rhonchi. HEART: Sounds S1, S2. Regular rate and rhythm. No murmurs, rubs or gallops. ABDOMEN: Soft, flat, nontender. Bowel sounds are present. EXTREMITIES: Pulses are 2+ throughout. He is moving all 4 extremities with 5/ 5 strength. NEUROLOGIC: He is awake, alert, oriented x3. Tongue midline. Carpenters are equal. He had no gross focal deficits. SKIN: Intact. DIAGNOSTIC STUDIES/LABORATORY DATA: WBC of 8.6, RBC of 5.01, hemoglobin of 16.1, hematocrit 46, platelet count of 225,000. INR is 0.86, PTT of 30.9, D- dimer less than 200. Sodium was 137, potassium was 3.4, chloride 103, bicarb 26 , BUN 17, creatinine 0.89, glucose 161, lactate 1.1, calcium 9.6, mag 2, total bili 0.6, AST 17, ALT 17, alk phos 127. CK 127, CK MB 9. Troponin 0.53. BNP of 27, albumin of 4.3, TSH of 7.20. He did have an EKG obtained today here. The EKG shows a normal sinus rhythm, no ST elevations or T-wave inversions were noted. He had an EKG earlier tonight , about an hour earlier, which again is unchanged, sinus rhythm, rate of 65, no ST elevations or T-wave inversions. He did have a chest x-ray obtained today, which revealed no active cardiopulmonary disease. He did have a stress test on the , which was negative. Old medical records were reviewed. ASSESSMENT AND PLAN: Mr. Rice is a 57-year-old male patient coming into the ED today with complaints of chest discomfort yesterday, lasting about 2 minutes , now found to have elevated enzymes. He will be admitted under inpatient status for: 1. Non-ST elevation myocardial infarction. At this point, it certainly could be a non-ST elevation myocardial infarction. He may have had a coronary artery vasospasm. He is on nitrates now. He has been on a calcium channel carlos. I will go ahead and get in touch with Dr. Chavez who will be seeing the patient tomorrow. We will treat him aggressively with Plavix, aspirin, statin therapy, beta blockers for the time being. I am going to continue his blood pressure medications. I am going to go ahead and start him on nitrates. I will continue to follow him closely in our intensive care, cycle his troponins, and I did order a formal echo in the morning, and again, Cardiology will be evaluating him. I did make him n.p.o. after midnight in case they want to pursue heart catheterization. 2. Diabetes. He will be on lispro sliding scale. 3. Hypertension. Continue meds as prescribed. I am adding a beta carlos. 4. Hyperlipidemia. Continue statin therapy. 5. History of tobacco abuse. I did offer nicotine patch, he is not interested. 6. History of non-alcoholic steatohepatitis. Follow with the primary. 7. DVT prophylaxis. He is on heparin drip. 8. Code status. He is full code. 9. Fluid, electrolytes and nutrition: Heart healthy diet, then n.p.o. after midnight with normal saline at 75 an hour. TIME SPENT: Time spent on the admission was 60 minutes, greater than half of the time was spent [id number] with the patient, obtaining my history and physical, the other half of the time was spent going over the plan of care with the patient and implementing the plan of care. I did discuss plan of care with my attending, Dr. Napier, he is in agreement. ERLIN PARISI, GARRY [id number]/CPS #: [id number] LUIS
[2017-08-14 06:17] LABS: ABS Basophils 0.1 10^3/ul (0-0.2); ABS Eosinophils 0.2 10^3/ul (0-0.6); ABS Lymphocytes 3.1 10^3/ul (1.0-4.8); ABS Monocytes 0.6 10^3/ul (0-0.8); ABS Neutrophils 5.6 10^3/ul (1.5-7.7); ABS Nucleated RBC 0 10^3/ul; Eosinophil % 1.6 % (0-6); Hematocrit 43 % (42-52); Hemoglobin 14.9 g/dl (14.0-18.0); Lymphocyte % 32.5 % (25-47); Mean Corpuscular HGB Conc 35 g/dl (31-36); Mean Corpuscular Hemoglobin 32 pg (27-31); Mean Corpuscular Volume 92 fL (80-94); Mean Platelet Volume 8 um3 (7.4-10.4); Nucleated Red Blood Cells % 0.1; Platelet Count 213 10^3/ul (150-450); Red Blood Count 4.69 10^6/ul (4.0-5.4); Red Cell Distribution Width 13 % (10.5-15); White Blood Count 9.6 10^3/ul (3.5-10.8)
[2017-08-14 06:29] LABS: EGFR Non-African American 95.5 (>60)
[2017-08-14] MEDS ORDERED: Ticagrelor* 90 MG TAB PO ONE ×2 (07:47→07:51)
[2017-08-14] MEDS: Aspirin Low Dose CHEW TAB* 81 MG PO SCH (07:56)
[2017-08-14] MEDS ORDERED: fentaNYL* 50 MCG/ML 2 ML VIAL (100 MCG VIAL) ONE (08:16)
[2017-08-14] MEDS ORDERED: Midazolam* 1 MG/ML 10 ML VIAL (10 MG) ONE (08:16)
[2017-08-14] MEDS ORDERED: Heparin 2 UNITS/ML IVPREMIX* 2,000 ML IV ONE (08:17)
[2017-08-14] MEDS ORDERED: nitroGLYCERIN DRIP* 25,000 MCG/250 ML BTL ONE (08:17)
[2017-08-14] MEDS ORDERED: Heparin(*) 1000 UNIT/ML 10 ML VIAL CATH LAB IV ONE (08:17)
[2017-08-14] MEDS ORDERED: Lidocaine 1% INJ* 10 MG/ML 30 ML SDV ONE (08:17)
[2017-08-14] MEDS ORDERED: Iohexol 350 (CONTRAST) 200 ML MDV IV ONE (08:19)
[2017-08-14] MEDS: Insulin LISPRO* 1 UNITS UNIT SUBCUT SCH ×3 (08:23→17:39)
[2017-08-14] MEDS ORDERED: Bivalirudin(*) 250 MG VIAL ONE ×2 (08:57→08:58)
[2017-08-14] MEDS ORDERED: Clopidogrel TAB* 75 MG PO SCH (09:00)
[2017-08-14] MEDS ORDERED: Nitroglycerin TAB 0.4 MG* 0.4 MG TAB SL PRN (09:35)
[2017-08-14] MEDS ORDERED: NS 0.9% 1000 ML* 1,000 ML IV SCH (09:45)
--- NOTE | 2017-08-14 10:06 | CONS ---
CC: Dr. Augustine Garnett CARDIOLOGY CONSULT: DATE OF CONSULT: 08/14/2017 INDICATION FOR CONSULT: The patient with recurrent chest discomfort episode, abnormal troponins, NSTEMI, assess cardiac status. HISTORY OF PRESENT ILLNESS: The patient is a pleasant 57-year-old gentleman, who has no prior known cardiac history. He has significant risk factors including a very strong family history with multiple family members young in life with coronary artery disease (see below). He has history of hypertension as well as hyperlipidemia as well as diabetes mellitus and he has smoked as well. Over the past 2 weeks, he started having a chest discomfort that interestingly occurred at rest as well as sometimes with exertion. There is a chest heaviness with pressure starting in the epigastric area, but going into his chest with some radiation. He had no nausea, shortness of breath, or vomiting with it. He originally came to the hospital on 08/11/17 and during that time, he underwent 2 stress tests. An attempt was made for an exercise stress test during which time, he exercised, but could not get his heart rate to target level. There were no EKG changes of ischemia, PVCs were noted somewhat, and no symptoms were developed during the course of that. It was switched to a Lexiscan stress test. Of note, he had chest discomfort that was present during the Lexiscan test. The nuclear images were interpreted by the radiologist as having diaphragmatic attenuation with gut artifact. They reported no evidence for stress-induced ischemia with the presence of infarction with normal ejection fraction of 57%. He subsequently was sent home. He went to see his family doctor on 08/13/17 because he continued to have chest discomfort intermittently. He had had chest discomfort even after he left the hospital, but again brief in nature lasting some 2 minutes. He saw his family doctor yesterday, who wanted to get an EKG and EKG showed apparently no acute changes. He then wanted a blood test drawn and he had a troponin of 0.2 and was sent to the emergency room. Overnight, the cardiac enzymes have slowly increased, the troponin, to 1.7 range. He has had no further chest discomfort overnight. Of note, he was placed on heparin. He was given a loading dose of clopidogrel and also aspirin. He was given beta carlos and he was also maintained on his amlodipine and his losartan medication as well. Overnight, he has done well. He was given atorvastatin 80 mg. PAST MEDICAL HISTORY: Significant for diabetes, hypertension, hyperlipidemia, nonalcoholic steatohepatitis, and smoking abuse. PAST SURGICAL HISTORY: He had a rotator cuff surgery. MEDICATIONS: At home, included: 1. Crestor 5 mg a day. 2. Glipizide 15 mg a day. 3. Amlodipine 10 mg a day. 4. Janumet 1 tablet daily. 5. Losartan/hydrochlorothiazide 1 a day. 6. Viagra 100 mg daily. 7. Aspirin 81 mg a day. ALLERGIES: No known drug allergies. FAMILY HISTORY: Father had an MA in his 30s, also had a CVA. He has had brothers with MIs. Multiple family members on the father's side with early coronary artery disease. Mother had an MA at 83. SOCIAL HISTORY: Aqu-jzdz-y-day smoker, he quit 07/27/17, but he does chew tobacco. He rarely drinks. REVIEW OF SYSTEMS: As per the H and P with no additional changes. PHYSICAL EXAM: When I see him reveals vital signs: Blood pressure 129/78, pulse is 54 and regular, respirations 17, O2 saturation 97%. Neck was supple. There is no increased JVP. Carotid has good upstroke and volume. I do not appreciate definitive bruits or transmitted murmur. Conjunctivae were pink. Sclerae clear. Lungs reveal no accessory muscle usage. There is good excursion. There are no active rales, rhonchi, or wheezes. Heart reveals no visible heaves, no palpable heaves or thrills. Normal S1, S2. There is no significant S3, S4 gallop. No significant systolic or diastolic murmurs are appreciated. Abdomen: Soft, nontender without organomegaly. Extremities: Without clubbing, cyanosis, or neftaly pitting edema. Peripheral pulses intact. Neuro: The patient is alert, oriented with normal mentation. Musculoskeletal: The patient moves all extremities appropriately. Psychological: The patient with normal affect. Skin: Intact. DIAGNOSTIC STUDIES/LAB DATA: Laboratory results from this morning reveal hemoglobin and hematocrit of 14.9 and 43, platelet count of 213,000. BUN and creatinine are 16 and 0.8. Sodium 138, potassium 3.9, chloride 107, bicarb 25. The troponins increased from 0.53 to 1.03 to 1.45 to 1.77. Total cholesterol was 125 with an LDL of 61. TSH was 7.2. B-natriuretic peptide was 27. SGOT was 17, SGPT was 17, alkaline phosphatase was 127. Total CPK in the ER was 127 with an MB of 9.0. EKG from 08/13/17, time 1906, revealed sinus rhythm. There is left axis deviation and there is an R wave greater than S wave in V2. No acute ST-T wave changes are seen. Repeat EKG from 2023 shows similar findings. Chest x-ray showed no mediastinal shift. Heart was normal size and configuration. Lung chance were clear. No acute cardiopulmonary disease. OVERALL ASSESSMENT: Zuhair now presents with a non-ST elevation myocardial infarction with positive enzymes. He is currently stable, but clearly he needs urgent cardiac catheterization given acute coronary syndrome presentation. At this point in time, we will switch him to Brilinta and not give him his clopidogrel today in preparation for his cardiac catheterization and proceed with cardiac catheterization. The risks and benefits were explained to him and he understands this and wishes to proceed. Further management will be made pending results of this. [id number]/[facility] #: [id number] [facility] HOSPITALAttila
--- NOTE | 2017-08-14 11:25 | PN ---
Subjective Date of Service: 08/14/17 Interval History: Patient seen and examined at bedside. Denies fever, chills, shortness of breath , chest discomfort, N/V/D. Pt states that he is feeling well at this time. Tele: Sinus carmelina, rate 50-60's Family History: Unchanged from Admission Social History: Unchanged from Admission Past Medical History: Unchanged from Admission Objective Active Medications: Acetaminophen (Tylenol Tab*) 650 mg PO Q4H PRN Reason: FEVER/PAIN Amlodipine Besylate (Norvasc Tab*) 10 mg PO DAILY [facility] Aspirin (Aspirin Low Dose Tab*) 81 mg PO DAILY [facility] Dextrose (D50w Syringe 50 Ml*) 12.5 gm IV PUSH .FOR FS < 60 - SS PRN Reason: FS < 60 Heparin Sodium (Porcine) (Heparin Vial(*)) 0 units IV .PER PROTOCOL KANG Heparin Sodium/Dextrose (Heparin Drip 25,000 Units(*)) 25,000 units in 500 mls @ 0 mls/hr IVPB .PER RATE KANG; Per Protocol Sodium Chloride (Ns 0.9% 1000 Ml*) 1,000 mls @ 100 mls/hr IV .per rate KANG Stop: 08/14/17 22:00 Insulin Human Lispro (Humalog*) 0 units SUBCUT AC [facility] Losartan Potassium (Cozaar Tab*) 100 mg PO DAILY [facility] Metoprolol Tartrate (Lopressor Tab*) 25 mg PO BID [facility] Nitroglycerin (Nitroglycerin 2% Oint*) 0.5 inch TOPICAL 0600,1200 [facility] Nitroglycerin (Nitroglycerin Tab 0.4 Mg*) 0.4 mg SL Q5M PRN Reason: ANGINA Ticagrelor (Brilinta*) 90 mg PO BID [facility] Vital Signs - 8 hr 08/14/17 08/14/17 08/14/17 03:30 04:00 04:31 Temperature 97.7 F Pulse Rate 56 53 58 Respiratory 9 17 16 Rate Blood Pressure 112/76 87/49 126/73 (mmHg) O2 Sat by Pulse 97 97 96 Oximetry 08/14/17 08/14/17 08/14/17 05:00 05:04 05:30 Temperature Pulse Rate 55 54 Respiratory 18 18 8 Rate Blood Pressure 134/79 122/71 (mmHg) O2 Sat by Pulse 98 97 Oximetry 08/14/17 08/14/17 08/14/17 06:00 06:02 06:31 Temperature Pulse Rate 54 54 Respiratory 17 15 14 Rate Blood Pressure 129/78 106/60 (mmHg) O2 Sat by Pulse 97 98 Oximetry 08/14/17 08/14/17 08/14/17 07:00 07:30 07:45 Temperature 98.3 F Pulse Rate 55 68 Respiratory 13 15 Rate Blood Pressure 111/65 141/81 (mmHg) O2 Sat by Pulse 97 98 Oximetry 08/14/17 08/14/17 08/14/17 08:00 09:35 09:53 Temperature 97.8 F Pulse Rate 57 52 55 Respiratory 17 10 22 Rate Blood Pressure 146/81 122/81 (mmHg) O2 Sat by Pulse 97 97 97 Oximetry 08/14/17 08/14/17 08/14/17 09:54 10:00 10:30 Temperature Pulse Rate 54 51 63 Respiratory 17 9 19 Rate Blood Pressure 125/82 122/81 146/90 (mmHg) O2 Sat by Pulse 97 93 98 Oximetry Oxygen Devices in Use Now: None Appearance: NAD, laying in bed Ears/Nose/Mouth/Throat: Mucous Membranes Moist Respiratory: Symmetrical Chest Expansion and Respiratory Effort, Clear to Auscultation Cardiovascular: NL Sounds; No Murmurs; No JVD, RRR Abdominal: NL Sounds; No Tenderness; No Distention Extremities: No Edema Skin: No Rash or Ulcers Neurological: Alert and Oriented x 3, NL Muscle Strength and Tone Lines/Tubes/Other Access: Clean, Dry and Intact Peripheral IV - site benign Nutrition: Taking PO's Result Diagrams: 08/14/17 05:40 08/14/17 05:40 Additional Lab and Data: Microbiology and Other Data: Microbiology 08/13/17 23:56 Nasal Screen MRSA (PCR)(FABIO) - Final Nasal Mrsa Negative Assess/Plan/Problems-Billing Assessment: Mr. Rice is a 57 yo male with PMH significant for DM, HTN, HLD, DAWN and tobacco abuse who presented to the hospital with complains of chest discomfort. - Patient Problems (1) NSTEMI (non-ST elevated myocardial infarction) Code(s): I21.4 - NON-ST ELEVATION (NSTEMI) MYOCARDIAL INFARCTION SNOMED Code(s ): 760514490 Comment: - Denies chest pain at this time - S/P cardiac cath this AM with stent to RCA for 95% occlusion - Troponin 0.53, 1.03, 1.45, 1.77 - Continue to trend troponin until peak - Continue Brilinta, ASA, metoprolol, and statin (2) Diabetes mellitus Code(s): E11.9 - TYPE 2 DIABETES MELLITUS WITHOUT COMPLICATIONS SNOMED Code(s) : 33860721 Comment: - HgA1C - 9.1 - Continue Glucose check /HS - Continue to hold glipizide and Janumet - Continue Lispro SS (3) Hyperlipidemia Code(s): E78.5 - HYPERLIPIDEMIA, UNSPECIFIED SNOMED Code(s): 13717175 Comment: - Lipid panel WNL - Continue statin (4) Hypothyroidism Code(s): E03.9 - HYPOTHYROIDISM, UNSPECIFIED SNOMED Code(s): 54421032 Comment: - TSH 7.20 - Will check Free T4 and T3 (5) Hypertension Code(s): I10 - ESSENTIAL (PRIMARY) HYPERTENSION SNOMED Code(s): 42795493 Comment: - Normotensive - Continue to hold HCTZ, resume when able - Continue Amlodipine, Losartan, and metoprolol (6) Tobacco abuse Code(s): Z72.0 - TOBACCO USE SNOMED Code(s): 743514043 Comment: - Encouraged to stop smoking - Declined Nicotine replacement (7) Nonalcoholic steatohepatitis (DAWN) Code(s): K75.81 - NONALCOHOLIC STEATOHEPATITIS (DAWN) SNOMED Code(s): 883008815 Comment: - Not an active issue - Continue to follow with PCP (8) DVT prophylaxis Code(s): GPX2282 - SNOMED Code(s): 487818196 Comment: - Encourage ambulation (9) Full code status Code(s): Z78.9 - OTHER SPECIFIED HEALTH STATUS SNOMED Code(s): 814998483 Status and Disposition: Inpatient. Discharge to home when medically stable, possibly in the AM. Attending: Bandar Linda
[2017-08-14] MEDS: amLODIPine TAB* 5 MG PO SCH (12:35)
[2017-08-14] MEDS: Losartan TAB* 25 MG PO SCH (12:35)
--- NOTE | 2017-08-14 16:31 | ECHO ---
Patient: ADARSH ARIAS [facility] Rec#: [id number] : 1960 Date: 08/14/2017 Age: 57y Height: 162.56 cm / 64.0 in Weight: 73.48 kg / 161.9 lbs Sex: M BSA: 1.79 Room#: [facility] Admit Date#: 08/13/2017 Type: Inpatient Referring: Erlin Parisi NP Reading: Ayana Recio MD Spectrograph Operator: Eleni Panchal RDCS CC: Augustine Garnett MD Transthoracic Echocardiogram Indication: STEMI BP: 129/78 HR: 56 Rhythm: Bradycardia Findings History: DM,HTN,HLD,quit smoking 07/27/17, s/p PCI to RCA 08/14/17 Technical Comments: The study quality is good. Completed at 1455. Left Ventricle: The left ventricular chamber size is normal. Posterior wall hypertrophy is observed. There is normal left ventricular systolic function. The estimated ejection fraction is 55-60%. There is no consistent Doppler evidence of clinically significant diastolic dysfunction. Left Atrium: The left atrial chamber size is normal. Right Ventricle: The right ventricular cavity size is normal. Right Atrium: The right atrial cavity size is normal. Aortic Valve: The aortic valve is trileaflet. There is no evidence of aortic valve thickening. There is no evidence of aortic regurgitation. There is no evidence of aortic stenosis. Mitral Valve: The mitral valve leaflets are mildly thickened. There is mild to moderate mitral regurgitation. There is no evidence of mitral stenosis. Tricuspid Valve: The tricuspid valve leaflets are normal. There is mild tricuspid regurgitation. No pulmonary hypertension is noted. Pulmonic Valve: The pulmonic valve appears normal. There is no evidence of pulmonic regurgitation. There is no pulmonic stenosis. Pericardium: The pericardium appears normal. Aorta: There is no dilatation of the ascending aorta. There is no dilatation of the aortic arch. There is no dilation of the aortic root. Pulmonary Artery: The main pulmonary artery appears normal. Venous: The venous system is not well visualized. Summary: There was not any prior study for comparison. Conclusions The left ventricular chamber size is normal. The estimated ejection fraction is 55-60%. There is mild to moderate mitral regurgitation. There is mild tricuspid regurgitation. No pulmonary hypertension is noted. Measurements Name Value Normal Range RVIDd (AP) 2D 2.8 cm (0.9 - 2.6) RVDdMajor (2D) 3.1 cm (2.2 - 4.4) RAd ISD 4CH 4.6 cm (3.4 - 4.9) RA (A4C)W 3.2 cm (2.9 - 4.6) IVSd (2D) 0.9 cm (0.6 - 1) LVPWd (2D) 1.2 cm (0.6 - 1) LVIDd (2D) 3.9 cm (3.6 - 5.4) LVIDs (2D) 2.5 cm - LV FS (2D) 36 % (25 - 45) Aortic Annulus 1.9 cm (1.4 - 2.6) Ao root diameter (2D) 3.1 cm (2.1 - 3.5) Ascending Ao 2.9 cm (2.1 - 3.4) Aortic arch 2 cm (1.8 - 3.4) Descending Ao 1 cm - LA dimension (AP) 2D 3.7 cm (2.3 - 3.8) LAd ISD 4CH 4.7 cm (2.9 - 5.3) LA ISD 4CH W 3.2 cm (2.5 - 4.5) Name Value Normal Range LA ESV SP 4CH (A/L) 28 ml - LA ESV SP 2CH (A/L) 63 ml - LA ESV BP (A/L) 47 ml - LA ESV BP (A/L) index 26.18 ml/m2 - LA ESV SP 4CH (MOD) 25 ml - LA ESV SP 2CH (MOD) 60 ml - Name Value Normal Range MV E-wave Vmax 1 m/sec - MV deceleration time 170 msec - MV A-wave Vmax 0.9 m/sec - MV E:A ratio 1.2 ratio - LV septal e' Vmax 0.07 m/sec - LV lateral e' Vmax 0.1 m/sec - Name Value Normal Range AV Vmax 1.8 m/sec - AV VTI 38.4 cm - AV peak gradient 13.43 mmHg - AV mean gradient 6.16 mmHg - LVOT Vmax 1.2 m/sec - LVOT VTI 27.4 cm - LVOT peak gradient 5.78 mmHg - LVOT mean gradient 2.17 mmHg - Name Value Normal Range MR Vmax 5.3 m/sec - MR VTI 181.6 cm - Name Value Normal Range TR Vmax 2.3 m/sec - TR peak gradient 21 mmHg - RAP 8 mmHg - RVSP 29 mmHg - Name Value Normal Range PV Vmax 1 m/sec - PV peak gradient 4.39 mmHg -
[2017-08-14] MEDS ORDERED: Atorvastatin* 10 MG TAB PO SCH (21:00)
[2017-08-14] MEDS ORDERED: Nitroglycerin 2% OINT* 1 GM PAK TOPICAL SCH (21:28)
[2017-08-14] MEDS: Metoprolol Tartrate TAB* 25 MG PO SCH (21:35)
[2017-08-14] MEDS: Ticagrelor* 90 MG TAB PO SCH (21:35)
--- NOTE | 2017-08-14 22:36 | CATH ---
CC: Dr. Augustine Garnett * CARDIAC CATHETERIZATION AND INTERVENTIONAL REPORT: DATE OF PROCEDURE: 08/14/17 - ROOM #ICU-06 INDICATIONS FOR PROCEDURE: The patient with non-ST elevation myocardial infarction. PROCEDURE: Coronary arteriography, left heart catheterization, left ventriculography, balloon angioplasty, and placement of a 2.75 x 28 mm long Synergy drug-eluting stent postdilated to 2.9 mm with high pressure balloon inflation. DESCRIPTION OF PROCEDURE: The patient was interviewed and examined in the intensive care unit where the risks and benefits were explained. He understood them and wished to proceed. The approach - the right radial artery was visualized under ultrasound prior to proceeding into the cardiac photographic laboratory technician and found to be acceptable in size and as such the right radial artery approach was utilized. Diagnostic coronary arteriography catheter - TIG4.0 curve 5-Iraqi catheter. Left heart catheterization catheter - 5-Iraqi PIG Performa radial. Guiding catheter - ART4 curve 6-Iraqi guide catheter. Interventional wire - 190 cm long BMW guidewire. Initial balloon angioplasty catheter - 2.5 x 15 mm long Emerge balloon. Stent utilized - 2.75 x 28 Synergy drug-eluting stent. Post stent deployment balloon catheter - 2.75 x 12 NC Emerge balloon. MEDICATIONS GIVEN: 1. Radial artery cocktail including 300 mcg of nitroglycerin and 3 mg of verapamil (heparin not placed in the cocktail as the patient was already on heparin intravenously). 2. Angiomax bolus and an Angiomax drip with subtherapeutic ACT. 3. Multiple boluses of intracoronary nitroglycerin. 4. The patient had already received the baby aspirin and 180 mg of Brilinta in the intensive care unit before coming to the photographic laboratory technician. The total contrast used was 150 cc of Omnipaque dye. The radiation exposure included 11.7 minutes of fluoro time. The air kerma radiation was 822 milligray. The DAP radiation was 5277 microgray per meter squared. RESULTS: HEMODYNAMIC DATA: Left heart catheterization - central aortic pressure was recorded at 140/67 with a mean of 96. Left ventricular pressure recorded at 145 over left ventricular end diastolic pressure of 15. LEFT VENTRICULOGRAPHY: Performed in the DONWEY projection revealed minimal hypotension in the inferior wall with well preserved motion elsewhere, the overall ejection fraction noted to be normal at 55% to 60%. There is mild, possibly mild to moderate mitral regurgitation. CORONARY ARTERIOGRAPHY: A. Right coronary artery - a dominant vessel supplying several acute marginal branches and ending in a posterior descending artery followed by a single posterior left ventricular branch. There was tapering of the initial proximal area of the vessel of 35% to 40%. In the proximal to mid segment, there was an ulcerated area with 60% narrowing, tapering down to a 95% blockage in the mid segment. Past this point, there was mild 20% to 25% narrowing seen. The beginning portion of the posterior left ventricular branch had mild 20% to 25% narrowing seen. B. Left coronary artery: 1. Left main. Long in nature. Mild luminal irregularities approximately 20% were seen. 2. Left anterior descending artery. The left anterior descending artery had mild 30% narrowing seen in its proximal portion after the first septal watch adjuster. The mid to distal segment had an area of 35% to 40% narrowing. The first diagonal branch had a proximal lesion of approximately 60% to 65%. 3. Circumflex artery - a nondominant vessel supplying multiple obtuse marginal branches and ending in two low-lying posterior left ventricular branches. There was mild luminal irregularity seen throughout the course of the vessel with narrowing after the second obtuse marginal branch of approximately 30%. The continuation of the vessel had no significant narrowing seen. INTERVENTION INTO THE MID TO PROXIMAL RIGHT CORONARY ARTERY: Successful reduction of critical 95% and 60% to 65% ulcerated area in the mid to proximal right coronary artery with balloon angioplasty and placement of a 2.75 x 28 mm long Synergy drug- eluting stent dilated to high pressures to obtain 2.9-mm with DEANDRE-3 flow. No dissection seen and 0% residual stenosis comparing to the distal vessel. OVERALL ASSESSMENT: Successful intervention into critically stenosed right coronary artery with moderate disease in the left system, most severe of which is the 60% to 65% proximal first diagonal branch lesion. At this point in time, aggressive medical management will be pursued with statin therapy, beta-carlos therapy, and dual-antiplatelet therapy for a minimum of 1 year's time, possibly longer to be evaluated at the end of the year. Tobacco chewing cessation is critical to his further ongoing care and we discussed that at length and he will be stopping that. Aggressive ongoing risk factor management by his family doctor, Dr. Ron Garnett for hypertension, diabetes and cholesterol control is paramount to stabilizing his cardiac disease. [id number]/[facility] #: [id number] [facility] DIVISIONAttila
[2017-08-15 06:43] LABS: EGFR Non-African American 105.7 (>60)
--- NOTE | 2017-08-15 08:39 | PN ---
Subjective Date of Service: 08/15/17 Interval History: Patient seen and examined at bedside. Denies fever, chills, shortness of breath , chest discomfort, N/V/D. Pt states that he has noticed recently that he has been fatigued for no reason. Discussed hypothyroidism and he is interested in starting on medication. Tele: Sinus rhythm, rate 40-60's. Family History: Unchanged from Admission Social History: Unchanged from Admission Past Medical History: Unchanged from Admission Objective Active Medications: Acetaminophen (Tylenol Tab*) 650 mg PO Q4H PRN Reason: FEVER/PAIN Amlodipine Besylate (Norvasc Tab*) 10 mg PO DAILY [facility] Aspirin (Aspirin Low Dose Tab*) 81 mg PO DAILY [facility] Atorvastatin Calcium (Lipitor*) 10 mg PO 2100 [facility] Dextrose (D50w Syringe 50 Ml*) 12.5 gm IV PUSH .FOR FS < 60 - SS PRN Reason: FS < 60 Insulin Human Lispro (Humalog*) 0 units SUBCUT AC [facility] Losartan Potassium (Cozaar Tab*) 100 mg PO DAILY [facility] Metoprolol Tartrate (Lopressor Tab*) 25 mg PO BID [facility] Nitroglycerin (Nitroglycerin Tab 0.4 Mg*) 0.4 mg SL Q5M PRN Reason: ANGINA Ticagrelor (Brilinta*) 90 mg PO BID [facility] Vital Signs - 8 hr 08/15/17 08/15/17 08/15/17 01:00 02:00 03:00 Pulse Rate 49 48 52 Respiratory 12 10 14 Rate Blood Pressure 107/57 116/62 136/71 (mmHg) O2 Sat by Pulse 95 97 99 Oximetry 08/15/17 08/15/17 08/15/17 03:33 03:42 04:00 Pulse Rate 51 47 Respiratory 18 Rate Blood Pressure 117/63 93/50 (mmHg) O2 Sat by Pulse 94 96 96 Oximetry 08/15/17 08/15/17 08/15/17 04:31 05:00 05:31 Pulse Rate 52 46 52 Respiratory 18 17 14 Rate Blood Pressure 140/83 112/57 121/59 (mmHg) O2 Sat by Pulse 98 97 96 Oximetry 08/15/17 08/15/17 08/15/17 06:00 06:14 06:30 Pulse Rate 48 51 52 Respiratory 16 18 Rate Blood Pressure 134/65 149/84 133/76 (mmHg) O2 Sat by Pulse 96 98 96 Oximetry 08/15/17 07:00 Pulse Rate 49 Respiratory 18 Rate Blood Pressure (mmHg) O2 Sat by Pulse 96 Oximetry Oxygen Devices in Use Now: None Appearance: NAD, laying in bed Ears/Nose/Mouth/Throat: Mucous Membranes Moist Respiratory: Symmetrical Chest Expansion and Respiratory Effort, Clear to Auscultation Cardiovascular: NL Sounds; No Murmurs; No JVD, RRR Abdominal: NL Sounds; No Tenderness; No Distention Extremities: No Edema Skin: No Rash or Ulcers Neurological: Alert and Oriented x 3, NL Muscle Strength and Tone Lines/Tubes/Other Access: Clean, Dry and Intact Peripheral IV - site benign Nutrition: Taking PO's Result Diagrams: 08/14/17 05:40 08/15/17 06:10 Additional Lab and Data: Microbiology and Other Data: Microbiology 08/13/17 23:56 Nasal Screen MRSA (PCR)(FABIO) - Final Nasal Mrsa Negative Assess/Plan/Problems-Billing Assessment: Mr. Rice is a 57 yo male with PMH significant for DM, HTN, HLD, DAWN and tobacco abuse who presented to the hospital with complains of chest discomfort. - Patient Problems (1) NSTEMI (non-ST elevated myocardial infarction) Code(s): I21.4 - NON-ST ELEVATION (NSTEMI) MYOCARDIAL INFARCTION SNOMED Code(s ): 414727824 Comment: - Denies chest pain at this time - S/P cardiac cath this 08/14 with stent to RCA for 95% occlusion - Troponin 0.53, 1.03, 1.45, 1.77, 1.70, 0.76 - Continue Brilinta, ASA, metoprolol, and statin (2) Diabetes mellitus Code(s): E11.9 - TYPE 2 DIABETES MELLITUS WITHOUT COMPLICATIONS SNOMED Code(s) : 29691847 Comment: - HgA1C - 9.1 - Glucose 150-320's - Continue Glucose check /HS - Resume glipizide and Janumet at discharge - Continue Lispro SS (3) Hyperlipidemia Code(s): E78.5 - HYPERLIPIDEMIA, UNSPECIFIED SNOMED Code(s): 98657591 Comment: - Lipid panel WNL - Continue statin (4) Hypothyroidism Code(s): E03.9 - HYPOTHYROIDISM, UNSPECIFIED SNOMED Code(s): 90304338 Comment: - TSH - 7.20, Free - T4 1.01, - T3 0.86 - Suspect subclinical hypothyroidism - Will start 25 mg levothyroxine (5) Hypertension Code(s): I10 - ESSENTIAL (PRIMARY) HYPERTENSION SNOMED Code(s): 16523550 Comment: - Normotensive - Resume HCTZ - Continue Amlodipine, Losartan, and metoprolol (6) Tobacco abuse Code(s): Z72.0 - TOBACCO USE SNOMED Code(s): 338139286 Comment: - Encouraged to stop smoking - Declined Nicotine replacement (7) Nonalcoholic steatohepatitis (DAWN) Code(s): K75.81 - NONALCOHOLIC STEATOHEPATITIS (DAWN) SNOMED Code(s): 126583894 Comment: - Not an active issue - Continue to follow with PCP (8) DVT prophylaxis Code(s): DTM0146 - SNOMED Code(s): 088723587 Comment: - Encourage ambulation (9) Full code status Code(s): Z78.9 - OTHER SPECIFIED HEALTH STATUS SNOMED Code(s): 314323576 Status and Disposition: Inpatient. Stable for discharge to home, later today
[2017-08-15] MEDS: Insulin LISPRO* 1 UNITS UNIT SUBCUT SCH (08:47)
[2017-08-15] MEDS: Aspirin Low Dose CHEW TAB* 81 MG PO SCH (08:48)
[2017-08-15] MEDS: amLODIPine TAB* 5 MG PO SCH (08:48)
[2017-08-15] MEDS: Losartan TAB* 25 MG PO SCH (08:49)
[2017-08-15] MEDS: Ticagrelor* 90 MG TAB PO SCH (08:49)
[2017-08-15] MEDS: Metoprolol Tartrate TAB* 25 MG PO SCH (09:14)
[2017-08-15 09:51] VITALS: BP 138/79
--- NOTE | 2017-08-16 01:37 | DS ---
CC: Augustine Garnett MD; Alfonso Rodriguez MD * DISCHARGE SUMMARY: DATE OF ADMISSION: 08/13/17 DATE OF DISCHARGE: 08/15/17 ATTENDING PHYSICIAN: Bandar Linda MD * (dictated by Yisel Ramirez NP) . PRIMARY DIAGNOSES: 1. Non-ST elevated myocardial infarction. 2. Status post cardiac catheterization with stenting to the mid right common artery. 3. Subclinical hypothyroidism. SECONDARY DIAGNOSES: 1. Diabetes mellitus. 2. Hyperlipidemia. 3. Hypertension. 4. Tobacco abuse. 5. Non-alcoholic steatohepatitis. CONSULTATIONS WHILE IN THE HOSPITAL: Dr. Alfonso Rodriguez with Interventional Cardiology. PROCEDURES WHILE IN THE HOSPITAL: Status post cardiac catheterization on with Dr. Alfonso Rodriguez, resulting in a stent placement in the mid right RCA for 95% occlusion. STUDIES WHILE IN THE HOSPITAL: 1. Chest x-ray on 08/13/17. Radiologist impression: No active cardiopulmonary disease is noted. 2. Transthoracic echocardiogram on 08/14/17. Business Applications Manager conclusion: The left ventricular chamber size is normal. The estimated ejection fraction is 55 % to 60%. There is [id number] mitral regurgitation, there is mild tricuspid regurgitation. No pulmonary hypertension is noted. DISCHARGE MEDICATIONS: New home medications: 1. Levothyroxine 25 mcg oral every morning. 2. Nitroglycerin 0.4 mg sublingual every 5 minutes as needed for chest pain. 3. Brilinta 90 mg oral twice daily. 4. Metoprolol succinate 25 mg oral daily. Continued home medications: 1. Crestor 5 mg oral daily. 2. Glipizide XL 15 mg oral daily. 3. Amlodipine 10 mg oral daily. 4. Janumet XR 100/1000 one tablet oral daily. 5. Losartan and hydrochlorothiazide 100/12.5 one tablet oral daily. 6. Viagra 100 mg oral every day as needed for erectile dysfunction. 7. Aspirin 81 mg oral daily. HISTORY OF PRESENT ILLNESS/HOSPITAL COURSE: Mr. Rice is a 57-year-old male with past medical history significant for diabetes mellitus, hypertension, hyperlipidemia, DAWN and tobacco abuse who initially presented to the hospital on 08/11/17 with complaints of chest discomfort. He underwent a nuclear stress test that was a low risk and was subsequently discharged on 08/12/17. Shortly after being discharged, the patient had an episode of severe crushing chest pain lasting for approximately 2 minutes. He thought it might have been acid reflux. He continued to have intermittent discomfort that was non-exertional, but denied associated symptoms such as shortness of breath, nausea or vomiting. He had no radiation of his pain. He called his primary care provider as he was already scheduled for a followup appointment and described what happened and the primary care provider got him in to the office to check the troponin and EKG. The troponin was 0.2. Due to concern, the patient was immediately sent to the emergency room. While in the emergency room, the patient stated that the chest discomfort was improved from the day prior, but he had been having intermittent chest discomfort for approximately 2 weeks. His troponin in the emergency room is 0.5. EKG with no significant changes. He had a chest x-ray without acute findings. Due to the patient's presentation, the hospitalists were asked to evaluate the patient for admission. While in the hospital, the patient was medically treated for non-ST elevated myocardial infarction with Plavix, aspirin, statin and beta-carlos. He was then seen in consultation by Dr. Alfonso Rodriguez who took him to the cardiac label operator on the morning of 08/14/17. The patient was found to have a 95% occluded mid RCA and had a cardiac stent placed. During the stay his troponins were trended, they peaked at 1.77. He was started on Brilinta, continued on aspirin , metoprolol and statin. He has had labile glucoses. He was on a lispro sliding scale. His oral antidiabetic medications have been held. He also had a TSH that was 7.2. Due to this he then had a free T4 of 1.01 and a T3 of 0.86. It was felt that this represented a subclinical hypothyroidism and the patient was started on levothyroxine. The patient had a lipid panel that was within normal limits. He was encouraged to stop smoking. The patient was doing well post cardiac catheterization and stent placement. Mr. Rice is stable for discharge to home today. Vital signs are as follows: Temperature 98.6, heart rate 51, respiratory rate 15, O2 sat 95% on room air, blood pressure 138/79. DISCHARGE PLAN: Mr. Rice will be discharged to home, activity as tolerated. He should be on a heart healthy, consistent carbohydrate diet. As far as his non-ST elevated myocardial infarction, he should continue on Brilinta. He has been placed on metoprolol succinate 25 mg oral daily. He has been continued on his home Crestor and continued on a baby aspirin. The patient has a followup appointment with Dr. Alfonso Rodriguez on 08/19/17 at 10:20 a.m. for wound check and followup. The patient has also been prescribed nitro 0.4 mg sublingual to use every 5 minutes as needed for chest pain. The patient also reports having an appointment previously scheduled with Dr. Garnett on 08/19/17. He has been asked to keep the scheduled appointment. As far as his subclinical hypothyroidism, he has been started on levothyroxine 25 mcg oral daily. He should have a blood work followup in 6 to 8 weeks. The patient has been resumed on his other home medications, although he has been asked to hold his Janumet until the morning of 08/16/17 to allow 48 hours after his cardiac catheterization before resuming. The patient has been asked to return to the emergency room for any chest pain or shortness of breath. He has been provided with written cardiac catheterization discharge instructions. This is a summarized report of a complex medical history and hospital stay. For further details, please see the entire medical record. TIME SPENT: Time for this discharge was approximately 50 minutes; greater than half of that was spent with the patient discussing discharge plans and instructions. CONDITION ON DISCHARGE: Stable. Reviewed by EVIN CRAWFORD 08/18/17 [id number] #: [id number] LUIS
== END 2017-08-15 11:00 | disposition home or self-care (01) | DRG 174 ==
LOC: ED 18:59 → ICU 21:54
PROVIDERS: ADMIT Hospitalist; ATTEND Internal Medicine Cardiovascular Disease
PROC: B2111ZZ Fluoroscopy of Multiple Coronary Arteries using Low Osmolar Contrast (ICD-10-PCS; 2017-08-14)
PROC: B2151ZZ Fluoroscopy of Left Heart using Low Osmolar Contrast (ICD-10-PCS; 2017-08-14)
PROC: 027034Z Dilation of Coronary Artery, One Artery with Drug-eluting Intraluminal Device, Percutaneous Approach (ICD-10-PCS; 2017-08-14)
PROC: 4A023N7 Measurement of Cardiac Sampling and Pressure, Left Heart, Percutaneous Approach (ICD-10-PCS; principal; 2017-08-14 08:30)
DX: I21.4 Non-ST elevation (NSTEMI) myocardial infarction (principal); K75.81 Nonalcoholic steatohepatitis (NASH); I08.1 Rheumatic disorders of both mitral and tricuspid valves; E02 Subclinical iodine-deficiency hypothyroidism; E11.9 Type 2 diabetes mellitus without complications; E78.5 Hyperlipidemia, unspecified; I10 Essential (primary) hypertension; F17.200 Nicotine dependence, unspecified, uncomplicated; I25.10 Atherosclerotic heart disease of native coronary artery without angina pectoris; Z79.84 Long term (current) use of oral hypoglycemic drugs; Z79.82 Long term (current) use of aspirin; Z82.3 Family history of stroke; Z82.49 Family history of ischemic heart disease and other diseases of the circulatory system; R00.1 Bradycardia, unspecified
CPT/HCPCS: 36415; 71045; 76937; 80048; 80053; 80061; 82550; 82553; 83036; 83605; 83735; 83880; 84439; 84443; 84479; 84484; 85025; 85379; 85610; 85652; 85730; 86140; 87641; 93005; 93306; 93458; 99156; 99157; A9270-GY; C1725; C1769; C1876; C1887; C9600-RC; J0583; J1644; J2250; J3010; J3490